=== PATIENT | female | born 1985 | race Caucasian/White ===

== ENCOUNTER → 2020-06-09 09:22 | Outpatient (CLI) | payer OTHER, SELFPAY ==
--- NOTE | 2020-06-09 09:23 | DI.RAD.S_ITS ---
PROCEDURE: XR LUMBAR SPINE 2-3V INDICATIONS: lower back pain TECHNIQUE: 3 views of the lumbar spine were acquired. COMPARISON: None. FINDINGS: Bones: 5 [id number] vertebrae are present. Mild levo curvature centered at the L1 level. Mild L5-S1 disc narrowing.. No vertebral body compression fractures. No suspicious bony lesions. Soft tissues: Overlying bowel gas pattern is normal. No suspicious soft tissue calcifications. Intrauterine device projected over the mid pelvis. IMPRESSION: Mild L5-S1 disc degeneration. Dictated by: Emmett OLIVERA Interpreted: Annie Calderon MD on 06/09/2020 at 10:13 Approved by: Annie Calderon M.D. on 06/09/2020 at 13:17
== END ==
PROVIDERS: PCP Registered Nurse; Referring Provider Registered Nurse; Visit Provider Registered Nurse
DX: M54.5 Low back pain (principal); M51.37 Other intervertebral disc degeneration, lumbosacral region
CPT/HCPCS: 72100

== ENCOUNTER → 2020-06-19 09:12 | Outpatient (CLI) | payer OTHER, SELFPAY ==
[2020-06-19 10:09] LABS: Add Manual Diff / Slide Review NO; Basophils Absolute Auto 0 /uL (0-100); Basophils Percent Auto 0.7 % (0-2); Eosinophils Absolute Auto 100 /uL (0-450); Eosinophils Percent Auto 1.4 % (2-4); Hematocrit 37.9 % (36-46); Hemoglobin 12.6 g/dL (12.0-16.0); Lymphocytes Absolute Auto 1600 /uL (1100-4500); Lymphocytes Percent Auto 26.7 % (25-40); Mean Corpuscular HGB Conc 33.2 % (30-36); Mean Corpuscular Hemoglobin 28.9 PG (26-34); Mean Corpuscular Volume 87.2 fL (80-100); Monocytes Absolute Auto 500 /uL (0-900); Monocytes Percent Auto 7.7 % (3-14); Neutrophils Absolute Auto 3700 /uL (1500-7000); Neutrophils Percent Auto 63.5 % (50-75); Platelet Count 226 X10^3/uL (150-400); Red Blood Cell Count 4.35 X10^6/uL (4.0-5.2); Red Cell Distribution Width 12.6 % (11.6-14.8); White Blood Cell Count 5.9 X10^3/uL (4.5-11.0)
[2020-06-19 10:49] LABS: Alanine Aminotransferase 12 IU/L (<35); Albumin 4.4 g/dL (3.5-5.0); Albumin Globulin Ratio 1.4 (1.0-2.8); Alkaline Phosphatase 32 U/L (38-126); Aspartate Aminotransferase 17 IU/L (14-36); Bilirubin Total 0.8 mg/dL (0.2-1.3); Blood Urea Nitrogen 17 mg/dL (7-17); Calcium 9.6 mg/dL (8.4-10.2); Carbon Dioxide 29 mmol/L (22-32); Chloride 103 mmol/L (98-107); Cholesterol 208 mg/dL (140-199); Estimated Glomerular Filt Rate > 60.0 mL/min (>60); Globulin 3.1 g/dL (1.7-4.1); Glucose 90 mg/dL (70-100); HDL Cholesterol 69 mg/dL (40-60); HEMOLYSIS < 15 (0-50); LDL Cholesterol Calculated 120 mg/dL (<100); Potassium 4.4 mmol/L (3.4-5.1); Sodium 138 mmol/L (137-145); Total Protein 7.5 g/dL (6.3-8.2); Triglycerides 94 mg/dL (35-150)
[2020-06-19 11:06] LABS: Appearance Urine UA CLEAR; Bilirubin Urine UA NEGATIVE (NEGATIVE); Color Urine UA YELLOW; Glucose Urine UA NEGATIVE (Negative); Ketones Urine UA NEGATIVE (NEGATIVE); Leukocyte Esterase Urine UA NEGATIVE (NEGATIVE); Nitrite Urine UA NEGATIVE (Negative); Occult Blood Urine UA NEGATIVE (Negative); Protein Urine UA NEGATIVE (Negative); Urobilinogen Urine UA 0.2 E.U./dL (0.2); pH Urine UA 6.5 (4.5-8.0)
== END ==
PROVIDERS: PCP Registered Nurse; Referring Provider Registered Nurse; Visit Provider Registered Nurse
DX: Z00.00 Encounter for general adult medical examination without abnormal findings (principal); Z82.49 Family history of ischemic heart disease and other diseases of the circulatory system
CPT/HCPCS: 36415; 80053; 80061; 81003; 85025

== ENCOUNTER → 2020-09-10 16:14 | Outpatient (CLI) | payer OTHER, SELFPAY ==
--- NOTE | 2020-09-10 16:16 | DI.MRI.S_ITS ---
PROCEDURE: MR LUMBAR SPINE WO CON INDICATIONS: Post lami syndrome TECHNIQUE: Noncontrast sagittal T1 spin echo and T2 fast echo, sagittal STIR, axial T1 and T2 fast spin echo through the lumbar spine. In cases with scoliosis, additional coronal T2 fast spin echo may be performed. COMPARISON: [facility], CR, XR LUMBAR SPINE 2-3V, 06/09/2020, 9:23. FINDINGS: Image quality: Diagnostic, with note made of motion artifact. Alignment and Curvature: There is normal bony alignment. Bone Marrow: Marrow is of normal overall signal. No acute vertebral body compression fractures. Spinal Cord: Conus medullaris terminates at the L1 level. Visualized cord demonstrates normal signal and size. Paraspinous Soft Tissues: No paravertebral masses. Transitional lumbar anatomy is seen, with partial sacralization of the L5 level on the left. T12-L1: Normal appearance. L1-L2: Normal appearance. L2-L3: Normal appearance. L3-L4: The disc height is well-preserved. Loss of disc signal is seen at this level. Mild generalized disc bulge is seen. Moderate facet joint hypertrophy is seen. Mild to moderate bilateral neural foraminal narrowing can be seen. Mild central canal narrowing is seen. L4-L5: The disc height is well-preserved. Loss of disc signal is seen at this level. Moderate disc bulge is seen, which is eccentric to the right. There is a superimposed central disc protrusion, with an associated annular fissure. Moderate facet joint hypertrophy is seen. Prior left hemilaminectomy change can be seen at this level. There is moderate to severe right-sided and at least moderate left-sided neural foraminal narrowing seen. No significant central canal narrowing is seen. L5-S1: No significant abnormality is seen. IMPRESSION: Focal L4-L5 degenerative change is seen, including a central disc protrusion with an associated annular fissure. Prior left hemilaminectomy is seen at L4-L5. Transitional lumbar anatomy, with partial sacralization of L5 on the left. Dictated by: Ray Dutta M.D. on 09/10/2020 at 17:00 Approved by: Ray Dutta M.D. on 09/10/2020 at 17:03
== END ==
PROVIDERS: PCP Registered Nurse; Referring Provider Radiology Diagnostic Radiology; Visit Provider Physical Medicine & Rehabilitation
DX: M47.816 Spondylosis without myelopathy or radiculopathy, lumbar region (principal); M96.1 Postlaminectomy syndrome, not elsewhere classified
CPT/HCPCS: 72148

== ENCOUNTER → 2020-10-19 13:55 | Outpatient (CLI) | payer OTHER, SELFPAY ==
[2020-10-19 15:07] LABS: COVID19 -Nasal RAPID Negative (Negative)
== END ==
PROVIDERS: PCP Registered Nurse; Visit Provider Physical Medicine & Rehabilitation
DX: Z20.822 Contact with and (suspected) exposure to COVID-19 (principal)
CPT/HCPCS: 87635; C9803

== ENCOUNTER 2020-10-20 10:42 | Outpatient (CLI) | payer OTHER, SELFPAY ==
[2020-10-20] VITALS (8 sets, daily range): BP systolic 120–136; BP diastolic 77–99; PULSE 75–87; RESP 13–20; O2SAT 96–100
--- NOTE | 2020-10-20 11:11 | DI.RAD.S_ITS ---
PROCEDURE: PAIN L INTERLAMINAR/CAUDAL INJ INDICATIONS: SPONDYLOSIS COMPARISON: None. FINDINGS: Fluoroscopic spot filming was performed to verify placement of spinal needles at the L4-L5 level(s), as labeled on the films. Appropriate location(s) of the needle tip(s) was confirmed by injection of iodinated contrast. IMPRESSION: Fluoroscopy for pain management. Dictated by: Felix Jamil M.D. on 10/20/2020 at 12:52 Approved by: Felix Jamil M.D. on 10/20/2020 at 12:52
[2020-10-20] MEDS: MIDAZOLAM 5 MG/5 ML VIAL IV (11:43)
[2020-10-20] MEDS: fentaNYL 100 MCG/2 ML INJ 50 MCG IV (11:43)
[2020-10-20] MEDS: BUPIVACAINE 0.5% (PF) VIAL 5 ML SUBCUT (11:47)
[2020-10-20] MEDS: IOPAMIDOL 15 ML VIAL 3 ML INJ (11:47)
[2020-10-20] MEDS: DEXAMETHASONE 10 MG/ML VIAL 20 MG INJ (11:47)
[2020-10-20] MEDS: BETAMETHASONE 30 MG/5 ML MDV 6 MG INJ (11:47)
--- NOTE | 2020-10-20 11:54 | P.PCN_ITS ---
Date/Time/Diagnoses Date of procedure: 10/20/20 Time of procedure: 11:54 Pre-procedure diagnosis: 1. HNP WITH RADICULAR FEATURES, 2. MULTILEVEL CENTRAL STENOSIS, Post-procedure diagnosis: same Procedure Notes Procedure: 1. FLUOROSCOPICALLY GUIDED CONTRAST CONTROLLED INTERLAMINAR EPIDURAL STEROID INJECTION -L4/5 Indications: Karina is referred by PEG Marquez for treatment of Bilateral Foraminal Stenosis R>L LE symptoms. Physician: Tomy Sow Total Fluoroscopy time (seconds): 7 Total sedation minutes: 9 Complications: none Procedure in detail & Post-procedure care: FINDINGS Multilevel Central Spinal Stenosis with Nerve Root Compression DESCRIPTION OF PROCEDURE Fluoroscopically guided, contrast-controlled L4/5 translaminar epidural steroid injection. Following review of allergy and review of potential side effects and complications, including, but not necessarily limited to, infection, allergic reaction, local tissue breakdown, temporary as well as permanent nerve injury, paralysis, stroke and possible , the patient indicated that the patient understood and agreed to proceed. An informed consent document was signed by the patient, witnessed by a nurse, and placed in the patient's chart. Additionally, other treatment options including modalities, medications, and physical therapy were reviewed with the patient. After review of previous anaesthesic history and IV conscious sedation the patient was deemed safe to proceed with today?s procedure with IV conscious sedation as ASA class II designation. Safety time-out was performed to confirm patient ID, procedure to be performed and site of procedure. IV sedation was accomplished with a combination of 2mg of Versed and 50mcg of Fentanyl was administered by the RN after DO order, titrated to patient comfort during the course of the procedure while the patient remained responsive to all verbal commands In the prone position, following sterile prep and drape of the lumbar region, the L4/5 translaminar space was identified fluoroscopically. The skin was anesthetized via a 25-gauge, 1.5inch needle with 1% lidocaine solution. At this point, a 22-gauge short bevel spinal needle was atraumatically introduced and advanced under fluoroscopic guidance into the region of the L4/5 translaminar space. Depth was confirmed on lateral view. Radiological data, including multiple fluoroscopic views of the lumbar spine, reveal a spinal needle at the L4/5 translaminar space. Lateral views then show placement of the needle in the epidural space. Subsequent views show contrast material flowing superiorly and inferiorly in the epidural space. No vascular or intrathecal uptake is observed. At this point, using loss of resistance technique with saline and air, the epidural space was entered. This was confirmed following negative aspiration with injection of approximately 1.5cc of Isovue 200, showing excellent epidural flow without vascular or intrathecal uptake. At this point, 1cc of 1% lidocaine solution combined with 4cc or 20mg of dexamethasone and 12mg betamethasone was injected without incident. The patient tolerated the procedure well without signs or symptoms of comp lications prior to transfer to the recovery area continued monitoring without incident. The patient was then transferred to the recovery area where they were observed for an appropriate period of time after the injection. The patient reported a VAS score of 6 prior to the procedure and a post- procedure VAS of 0. POST OP INSTRUCTIONS The patient was provided a Pain Log to continue to record their response to the target-specific procedure prior to follow-up visit with their referring physician. Additionally, specific post-injection care instructions and a contact number to our office were provided if concerns arise regarding possible complications associated with the procedure are suspected.
== END 2020-10-20 12:18 | disposition home or self-care (01) ==
LOC: RAD 10:43
PROVIDERS: PCP Registered Nurse; Referring Provider Registered Nurse; Visit Provider Physical Medicine & Rehabilitation
DX: M51.16 Intervertebral disc disorders with radiculopathy, lumbar region (principal); M48.061 Spinal stenosis, lumbar region without neurogenic claudication
CPT/HCPCS: 62323; J0702; J1100; J2250; J3010

== ENCOUNTER → 2020-11-24 14:07 | Outpatient (CLI) | payer OTHER, SELFPAY ==
[2020-11-24 15:07] LABS: COVID19 -Nasal RAPID Negative (Negative)
== END ==
PROVIDERS: PCP Family Medicine; Visit Provider Physical Medicine & Rehabilitation
DX: Z20.822 Contact with and (suspected) exposure to COVID-19 (principal)
CPT/HCPCS: 87635; C9803

== ENCOUNTER 2020-11-26 12:21 | Outpatient (CLI) | payer OTHER, SELFPAY ==
[2020-11-26] VITALS (9 sets, daily range): BP systolic 119–139; BP diastolic 75–97; PULSE 72–85; RESP 14–20; TEMP 36.3; O2SAT 97–100
--- NOTE | 2020-11-26 12:22 | DI.RAD.S_ITS ---
PROCEDURE: PAIN L/S TRANSFORAMINAL INJECT INDICATIONS: SPONDYLOSIS COMPARISON: [facility], XA, PAIN L INTERLAMINAR/CAUDAL INJ, 10/20/2020, 11:44. FINDINGS: Fluoroscopic spot filming was performed to verify placement of a spinal needle at the L4-L5 level, as labeled on the films. Appropriate location of the needle tip was confirmed by injection of iodinated contrast. IMPRESSION: Intraprocedural examination within normal limits. Dictated by: Ray Dutta M.D. on 11/26/2020 at 14:00 Approved by: Ray Dutta M.D. on 11/26/2020 at 14:00
[2020-11-26] MEDS: fentaNYL 100 MCG/2 ML INJ 50 MCG IV (13:13)
[2020-11-26] MEDS: MIDAZOLAM 5 MG/5 ML VIAL IV (13:13)
[2020-11-26] MEDS: IOPAMIDOL 15 ML VIAL 3 ML INJ (13:18)
[2020-11-26] MEDS: BUPIVACAINE 0.25% (PF) VIAL 2 ML INJ (13:18)
[2020-11-26] MEDS: methylPREDNISolone acetate 80 MG/ML VIAL INJ (13:19)
[2020-11-26] MEDS: DEXAMETHASONE 10 MG/ML VIAL 20 MG INJ (13:19)
--- NOTE | 2020-11-26 13:24 | P.PCN_ITS ---
Date/Time/Diagnoses Date of procedure: 11/26/20 Time of procedure: 13:24 Pre-procedure diagnosis: 1. FORAMINAL STENOSIS WITH LE SYMPTOMS Post-procedure diagnosis: same Procedure Notes Procedure: 1. FLUOROSCOPICALLY GUIDED CONTRAST CONTROLLED TRANSFORAMINAL EPIDURAL STEROID INJECTION - RIGHT L4/5 TFESI Indications: Karina is referred by Dr. oMrales for treatment of Foraminal Stenosis with Right LE Symptoms Physician: Tomy Sow Total Fluoroscopy time (seconds): 8 Total sedation minutes: 12 Complications: none Procedure in detail & Post-procedure care: FINDINGS Foraminal Nerve Root Compression secondary to disc disease and facet hypertrophy DESCRIPTION OF PROCEDURE Following review of allergy and review of potential side effects and complications, including, but not necessarily limited to, infection, allergic reaction, local tissue breakdown, stroke, temporary or permanent nerve injury, paralysis, and possible , the patient indicated that the patient understood and agreed to proceed. An informed consent document was signed by the patient, witnessed by a nurse, and placed in the patient's chart. Additionally, other treatment options including medications, modalities, and physical therapy were reviewed with the patient. After review of previous anaesthesic history and IV conscious sedation the patient was deemed safe to proceed with today?s procedure with IV conscious sedation as ASA class II designation. Safety time-out was performed to confirm patient ID, procedure to be performed and site of procedure. IV sedation was accomplished with a combination of 2mg of Versed and 50mcg of Fentanyl was administered by the RN after DO order, titrated to patient comfort during the course of the procedure while the patient remained responsive to all verbal commands In the prone position following sterile prep and drape of the lumbar region, the right L4/5 posterior neuroforamen was identified fluoroscopically. The skin was anesthetized via a 25-gauge 1.5-inch needle with 1% lidocaine solution. At this point, a 25-gauge 3.5-inch spinal needle was atraumatically introduced and advanced under fluoroscopic guidance through the posterior right L4/5 neuroforamen to approximately the anterior aspect of the canal. Depth was confirmed on lateral view. Following negative aspiration, injection of approximately 1.5cc of Isovue 200 under live fluoroscopy in the AP view confirmed excellent flow along the nerve root, into the epidural space without vascular or intrathecal uptake observed Radiological data, including multiple fluoroscopic views of the lumbosacral spine, reveal a spinal needle at the right L4/5 posterior neuroforamen. Subsequent views show flow of contrast material flowing superiorly and inferiorly along the nerve root confirming epidural flow. Subsequently, a test dose of 1.5 cc of 1% lidocaine solution was administered and patient was observed for two minutes for signs or symptoms of complications, including abdominal pain, shortness of breath, bilateral upper or lower extremity weakness, nausea and vomiting, prior to steroid injection. At this point, a total of 3cc or 20mg of dexamethasone and 6mg of betamethasone was injected without incident. The procedure tolerated the procedure well without signs or symptoms of complications prior to transfer to the recovery area continued monitoring without incident. The patient was then transferred to the recovery area where they were observed for an appropriate time after the injection. The patient reported a VAS score of 7 prior to the procedure and a post- procedure VAS of 0. POST OP INSTRUCTIONS The patient was provided a Pain Log to continue to record their response to the target-specific procedure prior to follow-up visit with their referring physician. Additionally, specific post-injection care instructions and a contact number to our office were provided if concerns arise regarding possible complications associated with the procedure are suspected.
== END 2020-11-26 13:45 | disposition home or self-care (01) ==
LOC: RAD 12:22
PROVIDERS: PCP Family Medicine; Referring Provider Physical Medicine & Rehabilitation; Visit Provider Physical Medicine & Rehabilitation
DX: M96.1 Postlaminectomy syndrome, not elsewhere classified (principal); M54.16 Radiculopathy, lumbar region; M48.061 Spinal stenosis, lumbar region without neurogenic claudication
CPT/HCPCS: 64483; 99152; J0702; J1040; J1100; J2250; J3010

== ENCOUNTER 2021-01-29 08:55 | Outpatient (CLI) | payer OTHER, SELFPAY ==
--- NOTE | 2021-01-29 | DI.RAD.S_ITS ---
PROCEDURE: FL MYELOGRAM SPINE LUMBOSACRAL INDICATIONS: SPINAL STENOSIS COMPARISON: [facility], CT, CT LUMBAR SPINE W CON, 01/29/2021, 10:47. TECHNIQUE: The indications, alternatives, benefits, risks and complications of the procedure were explained to the patient. Written informed consent was obtained and placed in the chart. The patient was placed in a prone position on the fluoroscopy table, and a level was chosen for percutaneous access under fluoroscopic guidance. The skin was prepped and draped in a sterile fashion. After local anaesthetic, a 22 gauge spinal needle was then used to enter the intrathecal space, with return of clear cerebrospinal fluid. 10 mL of Isovue M-300 were administered intrathecally under fluoroscopic visualization. The needle was then withdrawn, and a bandage applied to the puncture site. Fluoroscopic spot films were then acquired in various positions. FINDINGS: Standing frontal, lateral, and oblique views demonstrate no significant central canal stenoses. Access level: L3-L4 Medications: 1% lidocaine for local anaesthesia. Complications: None. Patient was transferred to CT for subsequent CT myelogram. IMPRESSION: Successful fluoroscopically guided administration of iodinated contrast into the lumbar spine central canal for CT myelogram. Dictated by: Aldo Hedrick M.D. on 01/29/2021 at 12:25 Approved by: Aldo Hedrick M.D. on 01/29/2021 at 12:27
--- NOTE | 2021-01-29 | DI.CT.S_ITS ---
PROCEDURE: CT LUMBAR SPINE W CON INDICATIONS: SPINAL STENOSIS TECHNIQUE: After the intrathecal administration of 15 mL intrathecal contrast, 3 mm thick sections acquired from T12 to the sacrum. Sagittal and coronal reformats were then constructed. For radiation dose reduction, the following was used: automated exposure control. COMPARISON: Outside Facility, RG, MRI L-SPINE W/O CONTRAST, 02/05/2019, 14:28. [facility], CR, XR LUMBAR SPINE 2-3V, 06/09/2020, 9:23. [facility], MR, MR LUMBAR SPINE WO CON, 09/10/2020, 16:21. FINDINGS: Image quality: Excellent. 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 Spinal alignment is normal. No spondylolysis or spondylolisthesis. No suspicious bony lesions. No acute fractures. Mild bilateral sacroiliac joint osteoarthritis. Soft tissues: No retroperitoneal masses. Visualized aorta demonstrates normal caliber. T12-L1: Normal appearance. L1-L2: Normal appearance. L2-L3: Normal appearance. L3-L4: Disc height is normal. Minimal to mild diffuse disc bulge. No central stenosis. No neural foraminal narrowing. No neural compression. L4-L5: Disc height is normal. Mild, diffuse disc bulge. Moderate-sized central disc protrusion. Mild narrowing of the central canal. [id number] right and mild left neural foraminal narrowing. No neural compression. L5-S1: Normal appearance. Miscellaneous: Nerve roots appear unremarkable throughout. No nerve root clumping to suggest arachnoiditis. IMPRESSION: 1. Transitional lumbosacral vertebral anatomy. 2. Mild L3-L4 and L4-L5 degenerative disc disease. 3. No severe central canal narrowing. 4. No severe neural foraminal narrowing. 5. No neural compression. Dictated by: Karol Ulloa MD, PhD on 01/29/2021 at 11:17 Approved by: Karol Ulloa MD, PhD on 01/29/2021 at 11:26
[2021-01-29 09:23] VITALS: BP 121/83; PULSE 83; RESP 13; TEMP 36.7; O2SAT 96
[2021-01-29 09:26] LABS: Hematocrit 39.5 % (36-46); Platelet Count 257 X10^3/uL (150-400)
[2021-01-29 09:36] LABS: INR 1.1 (0.9-1.3); Prothrombin Time 12.6 SECONDS (10.1-12.7)
[2021-01-29 10:36] VITALS: BP 97/70; PULSE 77; RESP 16; TEMP 36.9; O2SAT 98
[2021-01-29 11:00] VITALS: BP 117/76; PULSE 73; RESP 16; TEMP 36.9; O2SAT 98
[2021-01-29 12:16] VITALS: BP 117/81; PULSE 72; RESP 14; TEMP 36.8; O2SAT 100
[2021-01-29 12:45] VITALS: BP 116/79; PULSE 72; RESP 16; TEMP 36.4; O2SAT 100
== END 2021-01-29 13:04 | disposition admitted as inpatient to this hospital (09) ==
PROVIDERS: PCP Family Medicine; Referring Provider Orthopaedic Surgery; Visit Provider Orthopaedic Surgery
DX: M48.061 Spinal stenosis, lumbar region without neurogenic claudication (principal); Q76.49 Other congenital malformations of spine, not associated with scoliosis; M47.26 Other spondylosis with radiculopathy, lumbar region; Z98.890 Other specified postprocedural states; M96.1 Postlaminectomy syndrome, not elsewhere classified
CPT/HCPCS: 72132; 72265; 85014; 85049; 85610

== ENCOUNTER 2021-02-01 14:28 | Emergency (ER) | payer OTHER, SELFPAY ==
[2021-02-01 14:49] VITALS: PULSE 94; O2SAT 100
[2021-02-01 14:50] VITALS: BP 150/94; PULSE 79; O2SAT 100
[2021-02-01 14:51] VITALS: BP 150/70; PULSE 92; RESP 16; TEMP 36.9; O2SAT 100; BMI 26.1
--- NOTE | 2021-02-01 15:29 | ED.HA ---
HPI - Headache General Chief Complaint: Headache Stated Complaint: myelogram Monday, stiffening in neck, headache Time Seen by Provider: 02/01/21 14:54 Source: patient Mode of arrival: Ambulatory Limitations: no limitations History of Present Illness HPI Narrative: Patient is a 35-year-old female who presents with ongoing headache since CT myelogram for chronic back pain. She is seeing a neurosurgeon and she had of [address]ogram which was done here 3 days ago. Her headache is came 2 days ago it is worse upon standing it is better when she lies down. She has no new numbness tingling or weakness she has no nausea or vomiting or fevers. She has been taking Tylenol and ibuprofen. She has been drinking lots of water and drinking a little bit of caffeine such as Ramsey Rosado Tea she does not typically take caffeine. She has tried calling all of her doctors they are unable to help her she was recommended to come to the emergency department. MD Complaint: headache Onset (ago): day(s) (3) Related Data Home Medications Medication Instructions Recorded Confirmed acetaminophen 325 mg capsule 650 mg PO Q6H PRN 09/21/20 01/04/21 citalopram 10 mg tablet 10 mg PO DAILY 11/11/20 01/04/21 Previous Rx's Medication Instructions Recorded diclofenac sodium 75 mg 75 mg PO BID #60 tab 01/04/21 tablet,delayed release duloxetine 30 mg capsule,delayed 30 mg PO DAILY #90 cap 01/19/21 release duloxetine 60 mg capsule,delayed 60 mg PO DAILY #90 cap 01/19/21 release celecoxib 200 mg capsule 200 mg PO BID #60 cap 01/20/21 tramadol 50 mg tablet 50 mg PO Q8H PRN #20 tab 01/20/21 Allergies Allergy/AdvReac Type Severity Reaction Status Date / Time Penicillins Allergy Unknown Childhood Verified 01/29/21 09:21 reaction latex Allergy Rash Verified 01/29/21 09:21 Review of Systems Review of Systems Narrative: GENERAL: Denies chills, fatigue, malaise, fever, sweats, travel HEENT: Denies sinus pain, ear pain, sore throat, difficulty swallowing, neck pain RESPIRATORY: Denies dyspnea, cough, wheezing, hemoptysis, sputum. CARDIOVASCULAR: Denies chest pain, palpitations, orthopnea, edema GASTROINTESTINAL: Denies nausea, vomiting, abdominal pain, diarrhea, constipation, melena. : Denies dysuria, frequency, incontinence, hematuria, urinary retention, flank pain. MUSCULOSKELETAL: Denies weakness, joint pain, or bony pain SKIN: No rash, no erythema, no pruritus NEUROLOGIC: See HPI PSYCHIATRIC: No concerning psychosocial issues. 12 point review of systems is negative except for those stated above and HPI Patient History Medical History Anxiety and depression Constipation (~2019) Cystocele (~2019) Facet arthropathy, lumbar Foot drop, right Lumbar disc disease Lumbar post-laminectomy syndrome Lumbar radiculopathy Perineocele (~2019) Rectocele (~2019) Sacralization of lumbar vertebra Spinal stenosis Spondylosis Uterovaginal prolapse (~2019) Surgical History Anesthesia History of laminectomy (~02/2019) S/P wisdom tooth extraction Family History Father History of heart disease Hyperlipidemia Hypertension Grandfather Pulmonary fibrosis Grandmother History of heart disease Stroke Grandfather History of heart disease Grandmother History of heart disease Social History household members: spouse Smoking Status: Never smoker alcohol intake: former substance use type: does not use Smoking Status: Never smoker Substance Use Type: does not use Exam Initial Vital Signs Initial Vital Signs: Vital Signs Pulse Rate 94 H 02/01/21 14:49 Pulse Oximetry 100 02/01/21 14:49 GENERAL: Well-appearing, well-nourished and in no acute distress. HEENT: Head atraumatic,EOMI, pupils reactive, face symmetric, moist mucous membranes CARDIOVASCULAR: Regular rate and rhythm without murmurs, rubs or gallops. RESPIRATORY: Breath sounds equal bilaterally, no wheezes rales or rhonchi. EXTREMITIES: Normal range of motion, no clubbing or edema. Neurovascularly intact NEUROLOGICAL: Alert and oriented x4.Normal gait and speech. Cranial nerves II through XII grossly intact. [facility] strength equal bilateral SKIN: Warm, dry, no laceration, no petechiae, no rashes or lesions. Course Orders Ordered: ED Orders 02/01/21 15:55 Basic Metabolic Panel Stat Complete Blood Count AUTO DIFF Stat Discontinued Medications Acetaminophen/Butalbital/Caffeine (Butalb/Apap/Caffeine 50/325/40 Tablet) 1 each PO NOW ONE Stop: 02/01/21 15:38 Last Admin: 02/01/21 16:13 Dose: 1 each Documented by: [email or web address] Sodium Chloride (Normal Saline 0.9%) 1,000 mls @ 1,000 mls/hr IV BOLUS ONE Stop: 02/01/21 16:36 Last Admin: 02/01/21 16:10 Dose: 1,000 mls/hr Documented by: [email or web address] Ketorolac Tromethamine (Ketorolac 30 Mg/Ml Vial) 30 mg IV NOW ONE Stop: 02/01/21 15:38 Last Admin: 02/01/21 16:10 Dose: 30 mg Documented by: KULWANT Vital Signs Vital signs: Vital Signs - 8 hr 02/01/21 14:49 02/01/21 14:50 02/01/21 14:51 Temperature 98.4 F Pulse Rate 94 H 79 92 H Respiratory Rate 16 Blood Pressure 150/94 H 150/70 H Pulse Oximetry 100 100 100 02/01/21 16:55 02/01/21 18:13 02/01/21 18:14 Temperature Pulse Rate 70 89 89 Respiratory Rate 16 Blood Pressure 112/70 136/92 H Pulse Oximetry 100 93 98 MDM - Headache Lab Data Attestation: I reviewed the patient's lab results. Result diagrams: 02/01/21 15:55 02/01/21 15:55 Labs: Lab Results 02/01/21 02/01/21 Range/Units 15:55 15:55 WBC 7.7 (4.5-11.0) X10^3/uL RBC 4.46 (4.0-5.2) X10^6/uL Hgb 13.3 (12.0-16.0) g/dL Hct 38.9 (36-46) % MCV 87.2 (80-100) fL MCH 29.7 (26-34) PG MCHC 34.1 (30-36) % RDW 12.7 (11.6-14.8) % Plt Count 258 (150-400) X10^3/uL Neut % (Auto) 74.8 (50-75) % Lymph % (Auto) 17.6 L (25-40) % Fajardo % (Auto) 5.9 (3-14) % Eos % (Auto) 0.8 L (2-4) % Baso % (Auto) 0.9 (0-2) % Neut # (Auto) 5800 (0308-9006) /uL Lymph # (Auto) 1400 (8038-6079) /uL Fajardo # (Auto) 500 (0-900) /uL Eos # (Auto) 100 (0-450) /uL Baso # (Auto) 100 (0-100) /uL Sodium 138 (137-145) mmol/L Potassium 3.9 (3.4-5.1) mmol/L Chloride 104 (98-107) mmol/L Carbon Dioxide 26 (22-32) mmol/L BUN 13 (7-17) mg/dL Creatinine 0.80 (0.52-1.04) mg/dL Estimated GFR > 60.0 (>60) mL/min BUN/Creatinine Ratio 16.3 (6-22) Glucose 98 (70-100) mg/dL Calcium 9.1 (8.4-10.2) mg/dL MDM Narrative Medical decision making narrative: Patient has no new focal deficits signs and symptoms consistent with post lumbar puncture headache. Anesthesiology in emergency department blood patch placed. Patient instantaneously felt better she was able to stand up. Discharge Plan Departure Patient Disposition: Home Clinical Impression: Headache, post-lumbar puncture Instructions: DI for Headache Activity Restrictions/Additional Instructions: *You have been diagnosed with post lumbar puncture headache *What to do: And so glad that you are feeling better. Continue to rest and drink fluids *Continue to take medications as directed *Follow up with your primary care provider in 2-3 days *Return to ER if you should have worsening headache persistent vomiting weakness, changes in bowel or bladder habits, worsening back pain, numbness or tingling or any new, worsening or concerning symptoms Prescriptions: No Action duloxetine 30 mg capsule,delayed release(DR/EC) 30 mg PO DAILY Qty: 90 RF: 1 duloxetine 60 mg capsule,delayed release(DR/EC) 60 mg PO DAILY Qty: 90 RF: 1 celecoxib [Celebrex] 200 mg capsule 200 mg PO BID Qty: 60 RF: 5 Hold Instructions: Home Medication placed on hold at Doctor's office tramadol 50 mg tablet 50 mg PO Q8H PRN (Reason: pain) Qty: 20 RF: 0 acetaminophen [Tylenol] 325 mg capsule 650 mg PO Q6H PRNRF: 0 citalopram [Celexa] 10 mg tablet 10 mg PO DAILY RF: 0 diclofenac sodium 75 mg tablet,delayed release (DR/EC) 75 mg PO BID Qty: 60 RF: 2 Referrals: Luis Morales DO [Primary Care Provider] -
[2021-02-01 16:09] LABS: Add Manual Diff / Slide Review NO; Basophils Absolute Auto 100 /uL (0-100); Basophils Percent Auto 0.9 % (0-2); Eosinophils Absolute Auto 100 /uL (0-450); Eosinophils Percent Auto 0.8 % (2-4); Hematocrit 38.9 % (36-46); Hemoglobin 13.3 g/dL (12.0-16.0); Lymphocytes Absolute Auto 1400 /uL (1100-4500); Lymphocytes Percent Auto 17.6 % (25-40); Mean Corpuscular HGB Conc 34.1 % (30-36); Mean Corpuscular Hemoglobin 29.7 PG (26-34); Mean Corpuscular Volume 87.2 fL (80-100); Monocytes Absolute Auto 500 /uL (0-900); Monocytes Percent Auto 5.9 % (3-14); Neutrophils Absolute Auto 5800 /uL (1500-7000); Neutrophils Percent Auto 74.8 % (50-75); Platelet Count 258 X10^3/uL (150-400); Red Blood Cell Count 4.46 X10^6/uL (4.0-5.2); Red Cell Distribution Width 12.7 % (11.6-14.8); White Blood Cell Count 7.7 X10^3/uL (4.5-11.0)
[2021-02-01] MEDS: SODIUM CHLORIDE 0.9% 1,000 ML 1000 ML IV (16:10)
[2021-02-01] MEDS: KETOROLAC 30 MG/ML VIAL IV (16:10)
[2021-02-01] MEDS: BUTALB/APAP/CAFFEINE 50/325/40 TABLET 1 EACH PO (16:13)
[2021-02-01 16:23] LABS: BUN Creatinine Ratio 16.3 (6-22); Blood Urea Nitrogen 13 mg/dL (7-17); Calcium 9.1 mg/dL (8.4-10.2); Carbon Dioxide 26 mmol/L (22-32); Chloride 104 mmol/L (98-107); Estimated Glomerular Filt Rate > 60.0 mL/min (>60); Glucose 98 mg/dL (70-100); HEMOLYSIS < 15 (0-50); Potassium 3.9 mmol/L (3.4-5.1); Sodium 138 mmol/L (137-145)
[2021-02-01 16:55] VITALS: BP 112/70; PULSE 70; RESP 16; O2SAT 100
--- NOTE | 2021-02-01 17:09 | PM.AN.REGBLK ---
Regional Block Pre-procedure Procedure: Continuous Epidural for Post-operative Pain Management (epidural blood patch) Attending OB provider: Brianna Rivera PMH/ROS narrative: Patient with CT Myelogram Monday for evaluation of back pain, increasing weakness and decreased sensation RLE. Postural headache started Monday. Has attempted conservative therapy without relief. She presents to the ED for consideration for epidural blood patch. Hx: No personal or family history of anesthesia problems. PSH/Anesthesia history narrative: Previous lumbar spine surgeries Exam narrative: MP2, RRR, CTAB, back with slight scoliosis, thin. ASA Class: II Labs: Hct 38.9 % (36-46) 02/01/21 15:55 Plt Count 258 X10^3/uL (150-400) 02/01/21 15:55 Allergies: Allergies Allergy/AdvReac Type Severity Reaction Status Date / Time Penicillins Allergy Unknown Childhood Verified 01/29/21 09:21 reaction latex Allergy Rash Verified 01/29/21 09:21 Procedure Insertion date: 02/01/21 Insertion time: 16:51 Prep/Local: betadine x3 (chloroprep) and 1% lidocaine Interspace: L3-4 Patient position: sitting Needle: 18 gauge Marlys Loss of resistance with: air LEONARDO at (cm): 4 Insertion: No CSF, No Blood, No Paresthesia with insertion and No Paresthesia with injection Initial Medications BOLUS DOSE (mL): 20 BOLUS DOSE med: other (RN marcell 20mL blood from patient's right PIV after discard in a sterile fashion which was injected into the epidural space without complaint of discomfort from patient.) Infusion Subsequent interventions: Patient became slightly diaphoretic and dizzy at the end of the procedure. She was reclined supine and had 02 via nasal cannula placed. Within 10 minutes she was feeling better. Pain at beginning of the procedure was 6/10, 0/10 after. Post-procedure Anesthesia time START: 16:48 Anesthesia time END: 16:51 Post-procedure Anesthesia Assessment: Yes CV function: HR/BP stable, Yes Resp function: RR/sat/airway adequate, Yes Pain control adequate, Yes Nausea & vomiting absent, Yes Mental status appropriate and No Anesthesia complications
[2021-02-01 18:13] VITALS: PULSE 89; O2SAT 93
[2021-02-01 18:14] VITALS: BP 136/92; PULSE 89; O2SAT 98
== END 2021-02-01 18:20 | disposition home or self-care (01) ==
PROVIDERS: Emergency Provider Emergency Medicine; PCP Family Medicine
DX: G97.1 Other reaction to spinal and lumbar puncture (principal); R51.9 Headache, unspecified
CPT/HCPCS: 36415; 62273; 80048; 85025; 96374; 99284; J1885

== ENCOUNTER → 2021-02-08 09:00 | Outpatient (CLI) | payer OTHER, SELFPAY ==
--- NOTE | 2021-02-08 09:01 | DI.NM.S_ITS ---
PROCEDURE: NM BONE SPECT RADIOPHARMACEUTICAL: 20.1 mCi Tc-99m MDP IV. INDICATIONS: Other congenital malformations of spine TECHNIQUE: Delayed bone scintigrams were obtained of the region of interest 3-4 hours after intravenous administration of Tc-99m MDP. Additional tomographic (SPECT) imaging was performed and displayed in axial, coronal, and sagittal planes. COMPARISON: [facility], CT, CT LUMBAR SPINE W CON, 01/29/2021, 10:47. FINDINGS: There is focal increased uptake in the area of the spinal process of L3. No abnormal uptake is seen in the left L5-S1 where pseudoarticulation of the transverse process of L5 and sacrum is noted on the comparison CT. IMPRESSION: 1. Focal increased uptake in the area of the spinal process of L3. The comparison CT demonstrates no abnormality involving the spinous process of L3. The clinical significance of the finding is uncertain. If clinically indicated, MRI with and without contrast may be helpful. 2. No abnormal uptake is seen in the left L5-S1 where pseudoarticulation of the transverse process of L5 and sacrum is noted on the comparison CT. Dictated by: Felix Jamil M.D. on 02/08/2021 at 15:52 Approved by: Felix Jamil M.D. on 02/08/2021 at 17:46
== END ==
PROVIDERS: PCP Family Medicine; Referring Provider Orthopaedic Surgery; Visit Provider Orthopaedic Surgery
DX: Q76.49 Other congenital malformations of spine, not associated with scoliosis (principal); M48.061 Spinal stenosis, lumbar region without neurogenic claudication; M47.26 Other spondylosis with radiculopathy, lumbar region; Z98.890 Other specified postprocedural states
CPT/HCPCS: 78305; A9503

== ENCOUNTER 2021-03-29 08:16 | Emergency (ER) | payer OTHER, SELFPAY ==
[2021-03-29 08:24] VITALS: BP 107/73; PULSE 113; RESP 15; TEMP 35.9; O2SAT 97; BMI 27.6
--- NOTE | 2021-03-29 08:53 | ED_ITS ---
HPI - Abdominal Pain General Chief Complaint: Abdominal Pain Stated Complaint: vomitting since last night. Sent by [facility] Time Seen by Provider: 03/29/21 08:52 Source: patient Mode of arrival: Wheelchair Limitations: no limitations History of Present Illness HPI narrative: This is a 35-year-old female who comes emergency department with complaint of vomiting and abdominal pain that started at 9:00 a.m. last night. Patient states she had multiple episodes overnight. She denies any fevers, no chills. No cold cough or congestion. No chest pain or shortness of breath. Patient states she has chronic constipation related to a rectocele but this is actually been improvement she has not had any major changes with her bowel movements. She denies any dysuria, urgency or frequency when she was actively vomiting she had some urinary incontinence but has not had any additional episodes. She did recently start her menses. She has not appreciated other discharge. Patient states her had some similar symptoms a couple days ago but not as intense. She does have a history significant for myelogram about a week ago. But states that she has been doing well from this. She states yesterday she was actually doing quite well but did not take her regular Ultram or Celecoxib. Patient denies any other surgeries besides a prior back surgery. She states she has a childhood allergy to penicillin. Related Data Home Medications Medication Instructions Recorded Confirmed acetaminophen 325 mg capsule 650 mg PO Q6H PRN 09/21/20 03/29/21 (Tylenol) Previous Rx's Medication Instructions Recorded diclofenac sodium 75 mg 75 mg PO BID #60 tab 01/04/21 tablet,delayed release duloxetine 30 mg capsule,delayed 30 mg PO DAILY #90 cap 01/19/21 release duloxetine 60 mg capsule,delayed 60 mg PO DAILY #90 cap 01/19/21 release celecoxib 200 mg capsule (Celebrex) 200 mg PO BID #60 cap 01/20/21 methocarbamol 750 mg tablet 750 mg PO BID PRN 30 Days #60 tab 03/10/21 tramadol 50 mg tablet See Rx Instructions .ROUTE 03/12/21 .COMPLEX #20 tab diazepam 10 mg tablet (Valium) 10 mg PO .COMPLEX PRN #10 tab 03/25/21 ondansetron 4 mg disintegrating 4 mg PO Q6H PRN #7 tab 03/29/21 tablet Allergies Allergy/AdvReac Type Severity Reaction Status Date / Time Penicillins Allergy Unknown Childhood Verified 03/29/21 07:59 reaction latex Allergy Rash Verified 03/29/21 07:59 Review of Systems Review of Systems ROS Unobtainable: All systems reviewed & are unremarkable except as noted in HPI and below Patient History Medical History Anxiety and depression Constipation (~2019) Cystocele (~2019) Facet arthropathy, lumbar Foot drop, right Lumbar disc disease Lumbar post-laminectomy syndrome Lumbar radiculopathy Perineocele (~2019) Rectocele (~2019) Sacralization of lumbar vertebra Spinal stenosis Spondylosis Uterovaginal prolapse (~2019) Surgical History Anesthesia History of laminectomy (~02/2019) S/P wisdom tooth extraction Family History Father History of heart disease Hyperlipidemia Hypertension Grandfather Pulmonary fibrosis Grandmother History of heart disease Stroke Grandfather History of heart disease Grandmother History of heart disease Social History household members: spouse Smoking Status: Never smoker alcohol intake: former substance use type: does not use Smoking Status: Never smoker alcohol intake frequency: 0-2 drinks per day Substance Use Type: does not use Exam Narrative Exam Narrative: GENERAL: Alert and oriented x three, female in moderate distress. Patient is able to roll over the bed without much issue. HEENT: Head normocephalic, atraumatic, EOMI, pupils reactive, face symmetric, moist mucous membranes NECK: Supple, full range of motion CARDIOVASCULAR: Regular rate and rhythm without murmurs, rubs or gallops. RESPIRATORY: Breath sounds equal bilaterally, no wheezes rales or rhonchi. ABDOMEN: Soft, mild generalized tenderness. Nondistended. Normoactive bowel sounds all 4 quadrants. No guarding or rebound, rigidity, no mass : No CVA tenderness EXTREMITIES: Normal range of motion, no clubbing or edema. Neurovascularly intact NEUROLOGICAL: Cranial nerves II through XII grossly intact. Moving all extremities SKIN: Warm, dry, no petechiae, no rashes or lesions. Initial Vital Signs Initial Vital Signs: Vital Signs Temperature 96.7 F L 03/29/21 08:24 Pulse Rate 113 H 03/29/21 08:24 Respiratory Rate 15 03/29/21 08:24 Blood Pressure 107/73 03/29/21 08:24 Pulse Oximetry 97 03/29/21 08:24 Course Orders Ordered: ED Orders 03/29/21 10:27 Test Urine Stat Urinalysis and Microscopic Stat Discontinued Medications Sodium Chloride (Normal Saline 0.9%) 1,000 mls @ 150 mls/hr IV CONT CAROL Last Admin: 03/29/21 12:50 Dose: Not Given Documented by: JOHN Sodium Chloride (Normal Saline 0.9%) 1,000 mls @ 1,000 mls/hr IV BOLUS ONE Stop: 03/29/21 10:08 Last Infusion: 03/29/21 10:33 Dose: 0 mls/hr Documented by: Admin: 03/29/21 09:34 Dose: 1,000 mls/hr Documented by: RAF Ketorolac Tromethamine (Ketorolac 30 Mg/Ml Vial) 15 mg IV NOW ONE Stop: 03/29/21 09:10 Last Admin: 03/29/21 09:33 Dose: 15 mg Documented by: RAF Ondansetron HCl (Ondansetron 4 Mg/2 Ml Inj) 4 mg IV NOW ONE Stop: 03/29/21 09:10 Last Admin: 03/29/21 09:33 Dose: 4 mg Documented by: RAF Vital Signs Vital signs: Vital Signs - 8 hr 03/29/21 11:30 Pulse Rate 106 H Blood Pressure 108/68 Pulse Oximetry 97 MDM - Abdominal Pain Lab Data Result diagrams: 03/29/21 09:26 03/29/21 09:26 Labs: Lab Results 03/29/21 03/29/21 03/29/21 Range/Units 09:26 09:26 09:26 WBC 11.4 H (4.5-11.0) X10^3/uL RBC 4.56 (4.0-5.2) X10^6/uL Hgb 13.0 (12.0-16.0) g/dL Hct 39.5 (36-46) % MCV 86.6 (80-100) fL MCH 28.5 (26-34) PG MCHC 32.8 (30-36) % RDW 12.5 (11.6-14.8) % Plt Count 223 (150-400) X10^3/uL Neut % (Auto) 93.2 H (50-75) % Lymph % (Auto) 2.4 L (25-40) % [place] % (Auto) 4.1 (3-14) % Eos % (Auto) 0.2 L (2-4) % Baso % (Auto) 0.1 (0-2) % Neut # (Auto) 13996 H (7576-8599) /uL Lymph # (Auto) 300 L (6905-9204) /uL [place] # (Auto) 500 (0-900) /uL Eos # (Auto) 0 (0-450) /uL Baso # (Auto) 0 (0-100) /uL Sodium 138 (137-145) mmol/L Potassium 4.1 (3.4-5.1) mmol/L Chloride 103 (98-107) mmol/L Carbon Dioxide 25 (22-32) mmol/L BUN 18 H (7-17) mg/dL Creatinine 0.60 (0.52-1.04) mg/dL Estimated GFR > 60.0 (>60) mL/min BUN/Creatinine Ratio 30.0 H (6-22) Glucose 113 H (70-100) mg/dL Calcium 9.1 (8.4-10.2) mg/dL Total Bilirubin 0.8 (0.2-1.3) mg/dL AST 23 (14-36) IU/L ALT 25 (<35) IU/L Alkaline Phosphatase 34 L (38-126) U/L Total Protein 7.4 (6.3-8.2) g/dL Albumin 4.2 (3.5-5.0) g/dL Globulin 3.2 (1.7-4.1) g/dL Albumin/Globulin Ratio 1.3 (1.0-2.8) Lipase 49 (23-300) U/L Serum , Qual Negative (Negative) Urine Color Urine Appearance Urine pH (4.5-8.0) Ur Specific [place] (1.000-1.035) Urine Protein (Negative) Urine Glucose (UA) (Negative) g/dL Urine Ketones (NEGATIVE) Urine Occult Blood (Negative) Urine Nitrate (Negative) Urine Bilirubin (NEGATIVE) Urine Urobilinogen (0.2) E.U./dL Ur Leukocyte Esterase (NEGATIVE) Urine RBC (0-5/HPF) Urine WBC (0-5/HPF) Urine Bacteria (None) Ur Culture Indicated? Urine Test (Negative) SARS-CoV-2 (PCR) (Negative) 03/29/21 03/29/21 03/29/21 Range/Units 09:28 10:27 10:27 WBC (4.5-11.0) X10^3/uL RBC (4.0-5.2) X10^6/uL Hgb (12.0-16.0) g/dL Hct (36-46) % MCV (80-100) fL MCH (26-34) PG MCHC (30-36) % RDW (11.6-14.8) % Plt Count (150-400) X10^3/uL Neut % (Auto) (50-75) % Lymph % (Auto) (25-40) % [place] % (Auto) (3-14) % Eos % (Auto) (2-4) % Baso % (Auto) (0-2) % Neut # (Auto) (4732-7315) /uL Lymph # (Auto) (6715-4569) /uL [place] # (Auto) (0-900) /uL Eos # (Auto) (0-450) /uL Baso # (Auto) (0-100) /uL Sodium (137-145) mmol/L Potassium (3.4-5.1) mmol/L Chloride (98-107) mmol/L Carbon Dioxide (22-32) mmol/L BUN (7-17) mg/dL Creatinine (0.52-1.04) mg/dL Estimated GFR (>60) mL/min BUN/Creatinine Ratio (6-22) Glucose (70-100) mg/dL Calcium (8.4-10.2) mg/dL Total Bilirubin (0.2-1.3) mg/dL AST (14-36) IU/L ALT (<35) IU/L Alkaline Phosphatase (38-126) U/L Total Protein (6.3-8.2) g/dL Albumin (3.5-5.0) g/dL Globulin (1.7-4.1) g/dL Albumin/Globulin Ratio (1.0-2.8) Lipase (23-300) U/L Serum , Qual (Negative) Urine Color Yellow Urine Appearance Clear Urine pH 7.5 (4.5-8.0) Ur Specific [place] 1.010 (1.000-1.035) Urine Protein Trace H (Negative) Urine Glucose (UA) Negative (Negative) g/dL Urine Ketones Trace H (NEGATIVE) Urine Occult Blood 3+ H (Negative) Urine Nitrate Negative (Negative) Urine Bilirubin Negative (NEGATIVE) Urine Urobilinogen 0.2 (0.2) E.U./dL Ur Leukocyte Esterase Negative (NEGATIVE) Urine RBC 5-10/hpf H (0-5/HPF) Urine WBC None seen (0-5/HPF) Urine Bacteria None seen (None) Ur Culture Indicated? Cult not indicated Urine Test Negative (Negative) SARS-CoV-2 (PCR) Negative (Negative) Imaging Data CT scan - abdomen/pelvis: Radiologist's Impression: [address] [id number] Scan ReportSigned Patient: Karina Rios AM[facility]#: [id number]: 1985Acct:[id number]/Sex: 35 / FDate of Service: 03/29/21Loc: EDAccession Number: [id number] Procedure: CT abdomen pelvis w con Ordering Provider: Karina Davila D.O. PROCEDURE: CT ABDOMEN PELVIS W CON INDICATIONS: vomiting/diarrhea/abd pain since last night TECHNIQUE: After the administration of intravenous contrast, axial sections acquired from the lung bases to the pubic symphysis. Coronal and sagittal reformats were performed. For radiation dose reduction, the following was used: automated exposure control, adjustment of mA and/or kV according to patient size. COMPARISON: None. FINDINGS: Image quality: Excellent. Lung bases: Unremarkable. Heart: No significant findings. ABDOMEN: Liver: Unremarkable. Gallbladder: Unremarkable. Biliary ducts: Unremarkable. Pancreas: Unremarkable. Spleen: Unremarkable. Adrenal Glands: Unremarkable. Kidneys and Ureters: Unremarkable. Stomach and Bowel: Stomach, small bowel loops, and colon are unremarkable. Peritoneum: No abnormal intraperitoneal fluid. No free air. Ventral Wall: No hernias. Abdominal Nodes: No retroperitoneal or mesenteric adenopathy by size criteria. Vessels: Aorta and inferior vena cava are normal in size. PELVIS: Pelvic Organs: Unremarkable except for centrally positioned IUD.. Bladder: Unremarkable. Pelvic Nodes: No enlarged lymph nodes. Miscellaneous: No hernias are seen. A normal or abnormal appendix could not be located. There is no secondary CT evidence of acute appendicitis. No d iverticulitis is found.[id number] Bones: Unremarkable. IMPRESSION: No source of current symptomatology is seen. There is no sign of intestinal obstruction or perforation. Throughout the abdomen and pelvis no inflammatory or neoplastic process is found. Dictated by: César Turner M.D. on 03/29/2021 at 10:53 Approved by: César Turner M.D. on 03/29/2021 at 10:55 [facility] Narrative Medical decision making narrative: Who is having vomiting overnight. Patient's labs are reassuring, CT does not show any major changes. She did have a recent myelogram and has had other medical issues so was felt appropriate ordered this today. Patient feels much better after medications here in the department. She also notes her is the end of her a bowel that her had similar symptoms 2 days ago although not as intense patient does have blood in her urine but is currently on her menses. Discharge Plan Departure Patient Disposition: Home Clinical Impression: Vomiting Instructions: DI for Vomiting -- Adult Activity Restrictions/Additional Instructions: Follow up with your physician for recheck if you are not improving over the next 2-3 days. Your labs and imaging today are reassuring. Your imaging does not show any major abnormalities. You may take Zofran 1 tablet every 6 hours as needed for nausea Prescription was sent to [facility] in [place]. Fevers, persistent vomiting, severe abdominal, back or flank pain, lightheadedness or passing out, black or bloody stools or other new or concerning symptoms. Prescriptions: New ondansetron 4 mg tablet,disintegrating 4 mg PO Q6H PRN (Reason: nausea and vomiting) Qty: 7 RF: 0 No Action duloxetine 30 mg capsule,delayed release(DR/EC) 30 mg PO DAILY Qty: 90 RF: 1 duloxetine 60 mg capsule,delayed release(DR/EC) 60 mg PO DAILY Qty: 90 RF: 1 celecoxib [Celebrex] 200 mg capsule 200 mg PO BID Qty: 60 RF: 5 Hold Instructions: Home Medication placed on hold at Doctor's office tramadol 50 mg tablet See Rx Instructions .ROUTE .COMPLEX Qty: 20 RF: 0 diazepam [Valium] 10 mg tablet 10 mg PO .COMPLEX PRN (Reason: sedation) Qty: 10 RF: 0 methocarbamol 750 mg tablet 750 mg PO BID PRN (Reason: lower back pain/spasms) 30 Days Qty: 60 RF: 0 acetaminophen [Tylenol] 325 mg capsule 650 mg PO Q6H PRNRF: 0 diclofenac sodium 75 mg tablet,delayed release (DR/EC) 75 mg PO BID Qty: 60 RF: 2 Referrals: Luis Morales, [Primary Care Provider] -
--- NOTE | 2021-03-29 09:09 | DI.CT.S_ITS ---
PROCEDURE: CT ABDOMEN PELVIS W CON INDICATIONS: vomiting/diarrhea/abd pain since last night TECHNIQUE: After the administration of intravenous contrast, axial sections acquired from the lung bases to the pubic symphysis. Coronal and sagittal reformats were performed. For radiation dose reduction, the following was used: automated exposure control, adjustment of mA and/or kV according to patient size. COMPARISON: None. FINDINGS: Image quality: Excellent. Lung bases: Unremarkable. Heart: No significant findings. ABDOMEN: Liver: Unremarkable. Gallbladder: Unremarkable. Biliary ducts: Unremarkable. Pancreas: Unremarkable. Spleen: Unremarkable. Adrenal Glands: Unremarkable. Kidneys and Ureters: Unremarkable. Stomach and Bowel: Stomach, small bowel loops, and colon are unremarkable. Peritoneum: No abnormal intraperitoneal fluid. No free air. Ventral Wall: No hernias. Abdominal Nodes: No retroperitoneal or mesenteric adenopathy by size criteria. Vessels: Aorta and inferior vena cava are normal in size. PELVIS: Pelvic Organs: Unremarkable except for centrally positioned IUD.. Bladder: Unremarkable. Pelvic Nodes: No enlarged lymph nodes. Miscellaneous: No hernias are seen. A normal or abnormal appendix could not be located. There is no secondary CT evidence of acute appendicitis. No diverticulitis is found.[id number] Bones: Unremarkable. IMPRESSION: No source of current symptomatology is seen. There is no sign of intestinal obstruction or perforation. Throughout the abdomen and pelvis no inflammatory or neoplastic process is found. Dictated by: César Turner M.D. on 03/29/2021 at 10:53 Approved by: César Turner M.D. on 03/29/2021 at 10:55
[2021-03-29] MEDS: ONDANSETRON 4 MG/2 ML INJ IV (09:33)
[2021-03-29] MEDS: KETOROLAC 30 MG/ML VIAL 15 MG IV (09:33)
[2021-03-29] MEDS: SODIUM CHLORIDE 0.9% 1,000 ML 1000 ML IV (09:34)
[2021-03-29 09:45] LABS: Pregnancy Test Serum,Qual Negative (Negative)
[2021-03-29 09:46] LABS: Albumin 4.2 g/dL (3.5-5.0); Albumin Globulin Ratio 1.3 (1.0-2.8); Alkaline Phosphatase 34 U/L (38-126); Aspartate Aminotransferase 23 IU/L (14-36); Bilirubin Total 0.8 mg/dL (0.2-1.3); Blood Urea Nitrogen 18 mg/dL (7-17); Calcium 9.1 mg/dL (8.4-10.2); Carbon Dioxide 25 mmol/L (22-32); Chloride 103 mmol/L (98-107); Estimated Glomerular Filt Rate > 60.0 mL/min (>60); Globulin 3.2 g/dL (1.7-4.1); Glucose 113 mg/dL (70-100); HEMOLYSIS < 15 (0-50); Lipase 49 U/L (23-300); Potassium 4.1 mmol/L (3.4-5.1); Sodium 138 mmol/L (137-145); Total Protein 7.4 g/dL (6.3-8.2)
[2021-03-29 09:53] LABS: Alanine Aminotransferase 25 IU/L (<35)
[2021-03-29 10:05] VITALS: PULSE 105; O2SAT 99
[2021-03-29 10:05] LABS: Add Manual Diff / Slide Review NO; Basophils Absolute Auto 0 /uL (0-100); Basophils Percent Auto 0.1 % (0-2); Eosinophils Absolute Auto 0 /uL (0-450); Eosinophils Percent Auto 0.2 % (2-4); Hematocrit 39.5 % (36-46); Lymphocytes Absolute Auto 300 /uL (1100-4500); Lymphocytes Percent Auto 2.4 % (25-40); Mean Corpuscular HGB Conc 32.8 % (30-36); Mean Corpuscular Hemoglobin 28.5 PG (26-34); Mean Corpuscular Volume 86.6 fL (80-100); Monocytes Absolute Auto 500 /uL (0-900); Monocytes Percent Auto 4.1 % (3-14); Neutrophils Absolute Auto 10600 /uL (1500-7000); Neutrophils Percent Auto 93.2 % (50-75); Platelet Count 223 X10^3/uL (150-400); Red Blood Cell Count 4.56 X10^6/uL (4.0-5.2); Red Cell Distribution Width 12.5 % (11.6-14.8); White Blood Cell Count 11.4 X10^3/uL (4.5-11.0)
[2021-03-29 10:10] LABS: COVID19 -Nasal RAPID Negative (Negative)
[2021-03-29 10:29] VITALS: BP 100/61; PULSE 101; O2SAT 100
[2021-03-29 10:30] VITALS: BP 100/60; PULSE 101; O2SAT 100
[2021-03-29 10:39] LABS: Bacteria Urine None Seen; WBC Urine None Seen (0-5/HPF)
[2021-03-29 10:41] LABS: Appearance Urine UA CLEAR; Bilirubin Urine UA NEGATIVE (NEGATIVE); Color Urine UA YELLOW; Glucose Urine UA NEGATIVE (Negative); Ketones Urine UA TRACE (NEGATIVE); Leukocyte Esterase Urine UA NEGATIVE (NEGATIVE); Nitrite Urine UA NEGATIVE (Negative); Occult Blood Urine UA 3+ (Negative); Protein Urine UA TRACE (Negative); Urobilinogen Urine UA 0.2 E.U./dL (0.2)
[2021-03-29 10:43] LABS: pH Urine UA 7.5 (4.5-8.0)
[2021-03-29 10:44] LABS: Pregnancy Test Urine Negative (Negative)
[2021-03-29 10:49] LABS: RBC Urine 5-10/HPF (0-5/HPF)
[2021-03-29 10:50] LABS: Culture Indicated Urine Cult Not Indicated
[2021-03-29 11:00] VITALS: BP 104/67; PULSE 98; O2SAT 99
[2021-03-29 11:30] VITALS: BP 108/68; PULSE 106; O2SAT 97
== END 2021-03-29 11:52 | disposition home or self-care (01) ==
PROVIDERS: Emergency Provider Emergency Medicine; PCP Family Medicine
DX: R11.10 Vomiting, unspecified (principal); R19.7 Diarrhea, unspecified; R10.9 Unspecified abdominal pain; Z20.822 Contact with and (suspected) exposure to COVID-19
CPT/HCPCS: 36415; 74177; 80053; 81001; 81025; 83690; 84703; 85025; 87635; 96361; 96374; 96375; 99284; C9803; J1885; J2405

== ENCOUNTER → 2021-07-17 13:30 | Outpatient (CLI) | payer OTHER, SELFPAY ==
[2021-07-17 14:14] LABS: COVID19 -Nasal RAPID Negative (Negative)
== END ==
PROVIDERS: PCP Family Medicine; Visit Provider Physician Assistant
DX: Z20.822 Contact with and (suspected) exposure to COVID-19 (principal); R51.9 Headache, unspecified
CPT/HCPCS: 87635

== ENCOUNTER → 2022-09-18 10:47 | Outpatient (CLI) | payer OTHER, SELFPAY ==
--- NOTE | 2022-09-18 10:50 | DI.MRI.S_ITS ---
PROCEDURE: MR LUMBAR SPINE WO CON INDICATIONS: Radiculopathy, lumbosacral region TECHNIQUE: Noncontrast sagittal T1 spin echo and T2 fast echo, sagittal STIR, axial T1 and T2 fast spin echo through the lumbar spine. Axial and oblique coronal T1 spin echo and STIR through the sacrum. In cases with scoliosis, additional coronal T2 fast spin echo may be performed. COMPARISON: [facility], MR, MR LUMBAR SPINE WO CON, 09/10/2020, 16:21. FINDINGS: Image quality: Excellent. Alignment and Curvature: There is normal bony alignment. Bone Marrow: Marrow is of normal overall signal. No acute vertebral body compression fractures. No sacral fractures. Spinal Cord: Conus medullaris terminates at the top of L1 level. Visualized cord demonstrates normal signal and size. Paraspinous Soft Tissues: No paravertebral masses. T12-L1: Normal appearance. L1-L2: Normal appearance. L2-L3: Normal appearance. L3-L4: Unchanged. Mild disc bulge. Facet hypertrophy. Mild canal stenosis. No significant foraminal stenosis. L4-L5: Interval development of a large central posterior disc extrusion. There is increased signal present in the disc extrusion, suggesting a degree of acuity. The disc extrusion measures 17 x 16 x 10 mm. It markedly impresses on the thecal sac impinging on multiple nerve root structures. There is severe canal stenosis. There is bilateral facet hypertrophy. Mild left foraminal narrowing. Remote left hemilaminectomy. L5-S1: Normal appearance. Sacrum: Sacral neural foramina appear normal throughout. Superior to the piriformis muscles, the pre-plexal structures appear normal, including the lumbosacral trunk and S1 root. Just anterior to the piriformis muscles, the sacral plexus proper demonstrates normal morphology (lumbosacral trunk, S1 to S3 nerve roots). Inferior to the piriformis muscles, the sciatic nerves appear normal. IMPRESSION: 1. L4-L5 is a level with remote left hemilaminectomy. There is now a large central posterior disc extrusion impinging on multiple nerve root structures with severe canal stenosis. Dictated by: Aldo Hedrick M.D. on 09/19/2022 at 8:04 Approved by: Aldo Hedrick M.D. on 09/19/2022 at 8:09
== END ==
PROVIDERS: PCP Family Medicine; Referring Provider Physical Medicine & Rehabilitation; Visit Provider Physical Medicine & Rehabilitation
DX: M51.16 Intervertebral disc disorders with radiculopathy, lumbar region (principal); M48.061 Spinal stenosis, lumbar region without neurogenic claudication
CPT/HCPCS: 72148

== ENCOUNTER → 2022-11-11 14:55 | Outpatient (CLI) | payer OTHER, SELFPAY ==
--- NOTE | 2022-11-11 14:56 | DI.CT.S_ITS ---
PROCEDURE: CT LUMBAR SPINE WO CON INDICATIONS: Radiculopathy, lumbosacral region TECHNIQUE: Noncontrast 3 mm thick sections acquired from the T12 level to the sacrum. Sagittal and coronal reformats were constructed. For radiation dose reduction, the following was used: automated exposure control. COMPARISON: Lumbar MRI 09/18/2022. FINDINGS: Image quality: Excellent. Bones: There is normal bony alignment. No acute vertebral body compression fractures. No suspicious lytic or blastic bony lesions. No pars defects. T12-L1: Unremarkable. L1-L2: Unremarkable. L2-L3: Unremarkable. L3-L4: Broad-based disc bulge. Mild ligamentum flavum hypertrophy. Mild spinal canal narrowing. L4-L5: Central disc protrusion, resulting in moderate to severe spinal canal narrowing. L5-S1: Mild disc height loss. Soft tissues: No retroperitoneal masses or hematomas. Visualized aorta is normal in caliber. IMPRESSION: Central disc protrusion at L4-5, resulting in moderate to severe spinal canal narrowing. Dictated by: Renato Babin M.D. on 11/11/2022 at 15:57 Approved by: Renato Babin M.D. on 11/11/2022 at 16:04
== END ==
PROVIDERS: PCP Family Medicine; Referring Provider Orthopaedic Surgery; Visit Provider Orthopaedic Surgery
DX: Q76.49 Other congenital malformations of spine, not associated with scoliosis (principal); M48.061 Spinal stenosis, lumbar region without neurogenic claudication; M47.26 Other spondylosis with radiculopathy, lumbar region; M51.16 Intervertebral disc disorders with radiculopathy, lumbar region; Z98.890 Other specified postprocedural states
CPT/HCPCS: 72131

== ENCOUNTER → 2022-12-23 10:58 | Outpatient (CLI) | payer OTHER, SELFPAY ==
[2022-12-23 11:52] LABS: Add Manual Diff / Slide Review NO; Basophils Absolute Auto 100 /uL (0-100); Basophils Percent Auto 0.7 % (0-2); Eosinophils Absolute Auto 100 /uL (0-450); Eosinophils Percent Auto 1.1 % (2-4); Hematocrit 38.9 % (36-46); Hemoglobin 13.1 g/dL (12.0-16.0); Lymphocytes Absolute Auto 2200 /uL (1100-4500); Lymphocytes Percent Auto 26.2 % (25-40); Mean Corpuscular HGB Conc 33.6 % (30-36); Mean Corpuscular Volume 86.1 fL (80-100); Monocytes Absolute Auto 600 /uL (0-900); Monocytes Percent Auto 7.7 % (3-14); Neutrophils Absolute Auto 5400 /uL (1500-7000); Neutrophils Percent Auto 64.3 % (50-75); Platelet Count 294 X10^3/uL (150-400); Red Blood Cell Count 4.51 X10^6/uL (4.0-5.2); White Blood Cell Count 8.4 X10^3/uL (4.5-11.0)
[2022-12-23 14:44] LABS: Alanine Aminotransferase 25 IU/L (<35); Albumin 4.4 g/dL (3.5-5.0); Albumin Globulin Ratio 1.4 (1.0-2.8); Alkaline Phosphatase 40 U/L (38-126); Aspartate Aminotransferase 20 IU/L (14-36); BUN Creatinine Ratio 20.6 (6-22); Bilirubin Total 0.3 mg/dL (0.2-1.3); Blood Urea Nitrogen 14 mg/dL (7-17); Calcium 9.7 mg/dL (8.4-10.2); Carbon Dioxide 28 mmol/L (22-32); Chloride 100 mmol/L (98-107); Estimated Glomerular Filt Rate > 60 mL/min (>60); Globulin 3.2 g/dL (1.7-4.1); Glucose 86 mg/dL (70-100); HEMOLYSIS < 15 (0-50); Potassium 4.1 mmol/L (3.4-5.1); Sodium 138 mmol/L (137-145); Total Protein 7.6 g/dL (6.3-8.2)
== END ==
PROVIDERS: PCP Family Medicine; Referring Provider Family Medicine; Visit Provider Family Medicine
DX: M21.371 Foot drop, right foot (principal); M51.9 Unspecified thoracic, thoracolumbar and lumbosacral intervertebral disc disorder; M54.16 Radiculopathy, lumbar region; M54.59 Other low back pain
CPT/HCPCS: 36415; 80053; 85025